=== PATIENT | female | born 1960 | race Caucasian/White ===

== ENCOUNTER 2023-10-02 18:12 | Emergency (ER) | payer BC, SELFPAY ==
[2023-10-02 18:35] VITALS: BP 170/69; PULSE 69; RESP 16; TEMP 36.6; O2SAT 100
--- NOTE | 2023-10-02 18:47 | W.ED.GENAD ---
HPI General Date/Time Provider Initiated Documentation: 10/02/23 18:39. HPI Narrative: 63 year-old female presents to ED today by POV/ambulating with her family with a chief complaint of large object fell on her head- large pot- with +LOC, having nausea with onset just prior to arrival. Quality described as LOC for 30 seconds, family states she is mentating as normal, states her vision is slightly blurry, seems to be improving since arrival, no radiation to slurred speech, repetitive questioning, vomiting post-incident, large scalp hematoma, bleeding, endorses some neck and mid-back pain as well. Severity is described as 8/10. Palliating factors include nothing attempted yet. Provoking factors include nothing specific. Endorses Hx of Parkinson's disease. Patient not anticoagulated. Related Data Home Medications Medication Instructions Recorded Confirmed amantadine HCl 100 mg capsule 100 mg PO BID 10/02/23 10/02/23 carbidopa ER 36.25 mg-levodopa 145 1 cap PO BID 10/02/23 10/02/23 mg capsule,extended release rasagiline 1 mg tablet (Azilect) 1 mg PO DAILY 10/02/23 10/02/23 Allergies Allergy/AdvReac Type Severity Reaction Status Date / Time aspirin Allergy Severe Other (See Verified 10/02/23 18:32 Comment) penicillin G Allergy Severe Other (See Verified 10/02/23 18:32 Comment) General Stated Complaint: HeadInjury MAKEDA: 3 Review of Systems All systems reviewed & are unremarkable except as noted in HPI and below Exam Narrative Exam Narrative: GENERAL APPEARANCE: Well-nourished, non-toxic, awake and alert, atraumatic, no acute distress. SKIN: Warm, pink, dry, intact, without rashes/lesions/ulcerations. HEAD: Normocephalic, small scalp hematoma to posterior L crown, no Anderson's sign, no periorbital ecchymosis, normal hair distribution for gender/age. EYES: Pupils PERRLA, EOMs intact without nystagmus, question mild R lateral inf. visual field deficits in far periphery- but does identify movement, normal conjunctiva, no exudates on lids/lashes. ENT: Nares patent, no circumoral cyanosis, no facial swelling NECK: Supple, trachea midline, painless cervical ROM. LUNGS/CHEST: Lungs CTA bilaterally - no rhonchi/rales/wheezes diffusely, non-labored respirations, normal A/P diameter, symmetrical expansion, no chest wall deformity HEART (CV/PV): Regular rate and rhythm without murmur, no peripheral edema, no JVD. ABDOMEN: Soft, non-distended, no guarding, no tenderness. MSK: Normal ROM, no swelling/deformity to bilateral UEs or LEs, moving all extremities without weakness, no cyanosis, spine midline without tenderness, normal curvature, midline vertebral tenderness in neck and lower thoracic/upper lumbar- no crepitus or step-offs NEURO: Mental Status AAOx4 - alert to person, place, time, events No facial droop, no forehead involvement, no dysmetria with FNF, no dysmetria lower extremities Motor: No focal weakness - strength 5/5 in bilateral UEs and LEs, proximal and distal, symmetric. Sensory: sensation intact to light touch globally. Gait normal: patient ambulated without ataxia into ED room. PSYCH: euthymic, cooperative, pleasant, appropriate speech Course Vital Signs Vital signs: Vital Signs Temperature 36.6 C 10/02/23 18:35 Pulse 69 10/02/23 18:35 Respiratory Rate 16 10/02/23 18:35 Blood Pressure 170/69 H 10/02/23 18:35 Pulse Oximetry 100 10/02/23 18:35 Temperature 36.6 C 10/02/23 18:35 Temperature Source Temporal Artery Scan 10/02/23 18:35 Pulse 69 10/02/23 18:35 Respiratory Rate 16 10/02/23 18:35 Blood Pressure 170/69 H 10/02/23 18:35 Blood Pressure Position Sitting 10/02/23 18:35 Pulse Oximetry 100 10/02/23 18:35 Oxygen Delivery Method Room Air 10/02/23 18:35 Oxygen Flow Rate 0 10/02/23 18:35 Pain Level 8 10/02/23 18:35 Medical Decision Making This dictation utilizes [id number]-[id number] dictation software and may contain unedited grammatical errors. 63 y/o F presents to ED today with a chief complaint of large pot fell on her head from shelving, endorses head pain and LOC, had nausea after incident, and mid-back pain possibly from falling into chair on the way down- family states she is mentating as normal, pain is 8/10. Patient had no vomiting post-incident, questions mild vision change. Patients' medical history: Parkinson's disease. Family and social history: noncontributory. Pertinent exam findings / vital signs include small posterior scalp/crown hematoma without laceration, mild neck tenderness, moderate mid-back tenderness without crepitus or step-offs, no dysmetria with cerebellar testing, question R inf. visual field deficit. Differential / pathologies of concern include retinal detachment, vitreous hemorrhage, ICH, vertebral fracture, concussion syndrome. Diagnostic studies of: -CT Head, C-T-L Spine wo Contrast - no acute fractures, no ICH. -informal POCUS of OD shows no significant retinal detachment or vitreous hemorrhage, recommend eye exam at her technology officer next 24 hours Interventions of: -APAP. ED Course/Assessment/Plan: 63-year-old female presents after she was moving some shelving and a large pot fell on her head causing head pain as well as some mid back pain when she secondarily fell against a chair, she has some very mild neck pain, 8 out of 10 head pain, question a right visual field defect- informal pocus shows no retinal detachment or vitreous hemorrhage, CT scans negative for vertebral fracture/ICH. Counseled on brain rest for likely concussion- strict return to ED for any neurological changes and follow up with technology officer for persistent mild visual changes.. Findings not consistent with ICH, vertebral fracture, retinal detachment, vitreous hemorrhage. Disposition of Concussion Syndrome. Patient verbalized understanding of the plan and return to ED criteria and engaged in shared decision making. Medical Records Medical records reviewed: Yes I reviewed the patient's medical records. Imaging Data Radiologic Study: Attestation: I personally reviewed and interpreted this imaging study as follows: Imaging: CT Scan Radiologist's impression: Exam: CT Head Without Contrast Exam date and time: 10/02/2023 7:52 PM Age: 63 years old Clinical indication: Injury or trauma; Fall; Blunt trauma (contusions or hematomas); With loss of consciousness; Not specified; Injury date: 10/02/23; Injury details: Object fell on head +loc, head \T\ neck pain TECHNIQUE: Imaging protocol: Computed tomography of the head without contrast. Radiation optimization: All CT scans at this facility use at least one of these dose optimization techniques: automated exposure control; mA and/or kV adjustment per patient size (includes targeted exams where dose is matched to clinical indication); or iterative reconstruction. COMPARISON: No relevant prior studies available. FINDINGS: Brain: Mild volume loss No hemorrhage. Unremarkable white matter. No mass effect. Cerebral ventricles: No ventriculomegaly. Paranasal sinuses: Visualized sinuses are unremarkable. No fluid levels. Mastoid air cells: Visualized mastoid air cells are well aerated. Bones/joints: Unremarkable. No acute fracture. Soft tissues: Unremarkable. IMPRESSION: No acute intracranial abnormality. PROCEDURE INFORMATION: Exam: CT Cervical Spine Without Contrast Exam date and time: 10/02/2023 7:52 PM Age: 63 years old Clinical indication: Injury or trauma; Fall; Blunt trauma (contusions or hematomas); With loss of consciousness; Not specified; Injury date: 10/02/23; Injury details: Object fell on head +loc, head \T\ neck pain TECHNIQUE: Imaging protocol: Computed tomography of the cervical spine without contrast. Radiation optimization: All CT scans at this facility use at least one of these dose optimization techniques: automated exposure control; mA and/or kV adjustment per patient size (includes targeted exams where dose is matched to clinical indication); or iterative reconstruction. COMPARISON: No relevant prior studies available. FINDINGS: Bones/joints: No acute fracture. Loss of cervical lordosis is presumably on a degenerative basis.No significant disc bulge or herniation. No severe spinal canal stenosis. Multilevel severe neural foraminal narrowing. Lungs: Lung apices are normal. Soft tissues: Unremarkable. IMPRESSION: No acute cervical fracture noted Dictated and Authenticated by: Miguel Murray MD. Ordering:HILARIO Tracy MD Radiologic Study #2: Attestation: I personally reviewed and interpreted this imaging study as follows: Imaging: CT Scan Radiologist's impression: Exam: CT Thoracic Spine Without Contrast Exam date and time: 10/02/2023 8:02 PM Age: 63 years old Clinical indication: Injury or trauma; Blunt trauma (contusions or hematomas); Injury date: 10/02/23; Injury details: Fall to ground after loc, back pain; Prior surgery; Surgery date: 6+ months; Surgery type: Low back surgery TECHNIQUE: Imaging protocol: Computed tomography of the thoracic spine without contrast. Radiation optimization: All CT scans at this facility use at least one of these dose optimization techniques: automated exposure control; mA and/or kV adjustment per patient size (includes targeted exams where dose is matched to clinical indication); or iterative reconstruction. COMPARISON: CT HEAD CERVICAL SPINE WO 10/02/2023 7:52 PM FINDINGS: Bones/joints: No acute fracture. Normal alignment. No significant disc bulge or herniation. No severe spinal canal stenosis. No significant neural foraminal narrowing. Soft tissues: Unremarkable. IMPRESSION: Unremarkable CT Spine. PROCEDURE INFORMATION: Exam: CT Lumbar Spine Without Contrast Exam date and time: 10/02/2023 8:02 PM Age: 63 years old Clinical indication: Injury or trauma; Blunt trauma (contusions or hematomas); Injury date: 10/02/23; Injury details: Fall to ground after loc, back pain; Prior surgery; Surgery date: 6+ months; Surgery type: Low back surgery TECHNIQUE: Imaging protocol: Computed tomography of the lumbar spine without contrast. Radiation optimization: All CT scans at this facility use at least one of these dose optimization techniques: automated exposure control; mA and/or kV adjustment per patient size (includes targeted exams where dose is matched to clinical indication); or iterative reconstruction. COMPARISON: No relevant prior studies available. FINDINGS: Bones/joints: No acute fracture. Loss of lumbar lordosis is presumed degenerative. Chronic loss of height most pronounced at L4 and L5. Severe foraminal stenosis and moderate central canal stenosis at L4-L5 and L5-S1. Soft tissues: Unremarkable. IMPRESSION: No acute findings. Dictated and Authenticated by: Miguel Murray MD. Ordering:HILARIO Tracy MD Quality:[facility] Health Related Social Needs: No Data to Display FORMERLY [facility], [facility]–1983 All Active Problems (Updated 10/02/23 @ 20:42 by VIRGINIA Griffin) Concussion syndrome (Acute) Social History Smoking/Tobacco Use Status: Never Smoking risk assessment performed?: Yes Alcohol Intake: current Alcohol Intake frequency: holidays/special occasions only Drug use: Never Substance use type: does not use Discharge Plan Disposition Patient Disposition: Home Condition: Stable Discharge Details Clinical Impression: Concussion syndrome Primary Care Provider: Sindy Fernandez ED Provider: Demarcus Chris Home Meds and New Rx's Prescriptions: Continued amantadine HCl 100 mg capsule 100 mg PO BID carbidopa-levodopa 36.25-145 mg capsule, extended release 1 cap PO BID rasagiline [Azilect] 1 mg tablet 1 mg PO DAILY Discharge Instructions Instructions: Concussion (ED) Additional Instructions: You were seen in the emergency department for your head strike with loss of consciousness, you had some nausea after the incident but are mentating at baseline and did not develop any worrying neurological symptoms. We performed a [id number] ultrasound on your right eye for some possible visual field transient defects without findings of retinal detachment or severe vitreous hemorrhage. With CT scans of your head and entire spine were negative for any intracranial bleeding, vertebral fracture. Please use Tylenol only for the first 48 hours and perform brain rest activities like minimizing screen time, dim lighting lobes sound levels of ambient noise, avoid concentrate of activities. Then you can resume dual NSAID and acetaminophen treatment as follows: Please use therapeutic dosing of Tylenol (acetamenophen) & Advil (ibuprofen) in an alternating fashion as follows: Take 1000mg of Tylenol every 6 hours without missing doses- that is 4 times per day. [place] in between the Tylenol dosings, take 400-600mg of Advil also on a 6 hour schedule, that is also 4 times per day. The daily maximum dosing of Tylenol is 4000mg, and the daily maximum dosing of Advil is 2400mg. This is safe to do for weeks. Please note that some common cold medications & prescription pain medications may contain acetamenophen and you need to read OTC drug labels and factor that in to maximum daily dosings. If you continue to have any visual defects please present to an technology officer office for dilated eye exam, please return to an ER immediately for any further nausea vomiting, worsening mentation. Referrals: Sindy Fernandez [Primary Care Provider] - Discharge Data Discharge Date/Time-TO BE ENTERED AT DEPARTURE: 10/02/23 20:51
--- NOTE | 2023-10-02 19:30 | DI.CT_ITS ---
Exam(s) CT HEAD CERVICAL SPINE WO EXAM: CT HEAD CERVICAL SPINE WO CLINICAL HISTORY: object fell on head +LOC, head neck pain. TECHNIQUE: Imaging Protocol: Axial computed tomography images with coronal and sagittal reformatted images were created and reviewed COMPARISON: No exams were available for comparison FINDINGS: BRAIN: There are no skull fractures nor fluid in the visualized paranasal sinuses. There is no evidence of intracranial hemorrhage, mass effect, or shift of midline structures. There are no extra-axial fluid collections. The ventricles are not enlarged or shifted and there is no blo od within the ventricular system nor within the basal cisterns. CERVICAL SPINE: There is no evidence of fracture nor listhesis. No significant prevertebral soft tissue swelling. There is multilevel disc space narrowing. Bilateral Luschka joint osteophytes noted at and below the C3-4 level. Multilevel facet hypertrophy. There is no significant facet joint malalignment. No significant osseous lesions evident. IMPRESSION: No acute intracranial findings on this noninfused CT scan of the brain. No evidence of cervical spine fracture, malalignment, nor acute compromise of the cervical spinal can al. RADIATION DOSE DELIVERED: 1,400.05mGy.cm Total DLP DATA REPOSITORY: All CT scans at this facility are submitted to the National Radiology Data Registry (NRDR) Dose Index Registry (DIR) with the [employer] ([employer]). RADIATION OPTIMIZATION: All CT scans at this facility use at least one of these dose optimization te chniques: automated exposure control; mA and/or kV adjustment per patient size (includes targeted exa ms where dose is matched to clinical indication); or iterative reconstruction.
--- NOTE | 2023-10-02 19:30 | DI.CT_ITS ---
Exam(s) CT THORACIC LUMBAR SPINE WO EXAM: CT THORACIC LUMBAR SPINE WO CLINICAL HISTORY: fall to ground after LOC, back pain. TECHNIQUE: Imaging Protocol: Axial computed tomography images with coronal and sagittal reformatted images were created and reviewed. CONTRAST MATERIAL: Intravenous: None COMPARISON: No exams were available for comparison FINDINGS: THORACIC SPINAL COLUMN: No evidence of compression fracture or listhesis. Multilevel anterior osseou s lipping. Multilevel facet arthropathy. No facet malalignment. No acute compromise of the central canal. LUMBOSACRAL SPINAL COLUMN: No evidence of fracture, listhesis, nor pars defects. There is multilevel advanced degenerative disc disease. At L2-3 level there is asymmetric right-sided annular bulging and mild central canal stenosis. At L3-4 level there is moderate central canal stenosis due to short AP dimensions of the pedicles, br oad annular bulging, and facet arthropathy. At L4-5 level there is advanced disc space narrowing and vacuum phenomenon. Also moderate central ca nal stenosis. Mild bilateral foraminal stenosis. At L5-S1 level there is also an element of central canal stenosis for similar reasons as above. IMPRESSION: 1. No evidence of acute fracture nor listhesis in the thoracic and lumbosacral spinal columns. 2. Incidental note of multilevel degenerative disc disease in the lumbar spine and multilevel centra l spinal canal stenosis in the lumbosacral spinal column. If clinically indicated this can be furthe r studied with MRI. RADIATION DOSE DELIVERED: 1,358.42mGy.cm Total DLP DATA REPOSITORY: All CT scans at this facility are submitted to the National Radiology Data Registry (NRDR) Dose Index Registry (DIR) with the [employer] ([employer]). RADIATION OPTIMIZATION: All CT scans at this facility use at least one of these dose optimization te chniques: automated exposure control; mA and/or kV adjustment per patient size (includes targeted exa ms where dose is matched to clinical indication); or iterative reconstruction.
--- NOTE | 2023-10-02 20:07 | DI.VRAD_ITS ---
PROCEDURE INFORMATION: Exam: CT Head Without Contrast Exam date and time: 10/02/2023 7:52 PM Age: 63 years old Clinical indication: Injury or trauma; Fall; Blunt trauma (contusions or hematomas); With loss of consciousness; Not specified; Injury date: 10/02/23; Injury details: Object fell on head +loc, head \T\ neck pain TECHNIQUE: Imaging protocol: Computed tomography of the head without contrast. Radiation optimization: All CT scans at this facility use at least one of these dose optimization techniques: automated exposure control; mA and/or kV adjustment per patient size (includes targeted exams where dose is matched to clinical indication); or iterative reconstruction. COMPARISON: No relevant prior studies available. FINDINGS: Brain: Mild volume loss No hemorrhage. Unremarkable white matter. No mass effect. Cerebral ventricles: No ventriculomegaly. Paranasal sinuses: Visualized sinuses are unremarkable. No fluid levels. Mastoid air cells: Visualized mastoid air cells are well aerated. Bones/joints: Unremarkable. No acute fracture. Soft tissues: Unremarkable. IMPRESSION: No acute intracranial abnormality. PROCEDURE INFORMATION: Exam: CT Cervical Spine Without Contrast Exam date and time: 10/02/2023 7:52 PM Age: 63 years old Clinical indication: Injury or trauma; Fall; Blunt trauma (contusions or hematomas); With loss of consciousness; Not specified; Injury date: 10/02/23; Injury details: Object fell on head +loc, head \T\ neck pain TECHNIQUE: Imaging protocol: Computed tomography of the cervical spine without contrast. Radiation optimization: All CT scans at this facility use at least one of these dose optimization techniques: automated exposure control; mA and/or kV adjustment per patient size (includes targeted exams where dose is matched to clinical indication); or iterative reconstruction. COMPARISON: No relevant prior studies available. FINDINGS: Bones/joints: No acute fracture. Loss of cervical lordosis is presumably on a degenerative basis.No significant disc bulge or herniation. No severe spinal canal stenosis. Multilevel severe neural foraminal narrowing. Lungs: Lung apices are normal. Soft tissues: Unremarkable. IMPRESSION: No acute cervical fracture noted Dictated and Authenticated by: Miguel Murray MD. Ordering:HILARIO Tracy MD
--- NOTE | 2023-10-02 20:22 | DI.VRAD_ITS ---
PROCEDURE INFORMATION: Exam: CT Thoracic Spine Without Contrast Exam date and time: 10/02/2023 8:02 PM Age: 63 years old Clinical indication: Injury or trauma; Blunt trauma (contusions or hematomas); Injury date: 10/02/23; Injury details: Fall to ground after loc, back pain; Prior surgery; Surgery date: 6+ months; Surgery type: Low back surgery TECHNIQUE: Imaging protocol: Computed tomography of the thoracic spine without contrast. Radiation optimization: All CT scans at this facility use at least one of these dose optimization techniques: automated exposure control; mA and/or kV adjustment per patient size (includes targeted exams where dose is matched to clinical indication); or iterative reconstruction. COMPARISON: CT HEAD CERVICAL SPINE WO 10/02/2023 7:52 PM FINDINGS: Bones/joints: No acute fracture. Normal alignment. No significant disc bulge or herniation. No severe spinal canal stenosis. No significant neural foraminal narrowing. Soft tissues: Unremarkable. IMPRESSION: Unremarkable CT Spine. PROCEDURE INFORMATION: Exam: CT Lumbar Spine Without Contrast Exam date and time: 10/02/2023 8:02 PM Age: 63 years old Clinical indication: Injury or trauma; Blunt trauma (contusions or hematomas); Injury date: 10/02/23; Injury details: Fall to ground after loc, back pain; Prior surgery; Surgery date: 6+ months; Surgery type: Low back surgery TECHNIQUE: Imaging protocol: Computed tomography of the lumbar spine without contrast. Radiation optimization: All CT scans at this facility use at least one of these dose optimization techniques: automated exposure control; mA and/or kV adjustment per patient size (includes targeted exams where dose is matched to clinical indication); or iterative reconstruction. COMPARISON: No relevant prior studies available. FINDINGS: Bones/joints: No acute fracture. Loss of lumbar lordosis is presumed degenerative. Chronic loss of height most pronounced at L4 and L5. Severe foraminal stenosis and moderate central canal stenosis at L4-L5 and L5-S1. Soft tissues: Unremarkable. IMPRESSION: No acute findings. Dictated and Authenticated by: Miguel Murray MD. Ordering:HILARIO Tracy MD
[2023-10-02 20:41] VITALS: BP 150/71; PULSE 65; RESP 16; O2SAT 100
[2023-10-02] MEDS: Acetaminophen 500 MG TAB 1000 MG PO (20:50)
== END 2023-10-02 20:51 | disposition home or self-care (01) ==
PROVIDERS: Emergency Provider Physician Assistant; PCP Legal Medicine
DX: F07.81 Postconcussional syndrome (principal); M51.36 Other intervertebral disc degeneration, lumbar region; M48.061 Spinal stenosis, lumbar region without neurogenic claudication; G20.A1 Parkinson's disease without dyskinesia, without mention of fluctuations
CPT/HCPCS: 99284; 70450; 72125; 72128; 72131